=== PATIENT | female | born 1980 | race Caucasian/White ===

== ENCOUNTER 2016-12-12 10:13 | Outpatient (CLI) | payer OTHER ==
[2016-12-12 18:09] LABS: BASOPHILS % (AUTO) 0.7 %; EOSINOPHILS % (AUTO) 0.6 %; HCT - HEMATOCRIT 42.2 % (37.0-47.0); HGB - HEMOGLOBIN 14.2 g/dL (12.0-16.0); LYMPHOCYTES # (AUTO) 1.6 10^3/uL (1.5-3.5); LYMPHOCYTES % (AUTO) 37.5 %; MEAN CORPUSCULAR HEMOGLOBIN 32.6 pg (27.0-31.0); MEAN CORPUSCULAR HGB CONC 33.5 g/dL (32.0-36.0); MEAN CORPUSCULAR VOLUME 97.2 fL (81.0-99.0); MEAN PLATELET VOLUME 9.7 fL (7.9-10.8); MONOCYTES # (AUTO) 0.4 10^3/uL (0.0-1.0); MONOCYTES % (AUTO) 8.9 %; NEUTROPHILS # (AUTO) 2.3 10^3/uL (1.5-6.6); NEUTROPHILS % (AUTO) 52.3 %; NUCLEATED RED BLOOD CELLS AUTO 0.1 /100WBC; RED BLOOD COUNT 4.34 10^6/uL (4.20-5.40); RED CELL DISTRIBUTION WIDTH 13.2 % (12.0-15.0); UNCORRECTED WHITE BLOOD COUNT 4.3 x10^3/uL; WHITE BLOOD COUNT 4.3 x10^3/uL (4.8-10.8)
[2016-12-12 19:00] LABS: ALBUMIN/GLOBULIN RATIO 1.6 (1.0-2.2); BILIRUBIN,TOTAL 1.1 mg/dL (0.2-1.0); CALCIUM 9.4 mg/dL (8.5-10.3); CREATININE 0.8 mg/dL (0.4-1.0); POTASSIUM 4.1 mmol/L (3.5-5.0); TOTAL PROTEIN 7.7 g/dL (6.7-8.2)
== END 2016-12-12 10:14 | disposition home or self-care (01) ==
LOC: LAB.F 10:13
PROVIDERS: ATTEND Physician Assistant Medical
DX: E05.00 Thyrotoxicosis with diffuse goiter without thyrotoxic crisis or storm (principal); Z79.899 Other long term (current) drug therapy
CPT/HCPCS: 36415; 80050; 82306

== ENCOUNTER 2017-06-18 10:30 | Emergency (ER) | payer OTHER ==
[2017-06-18 11:25] LABS: BILIRUBIN,URINE NEGATIVE (NEGATIVE); PH,URINE 7.5 PH (5.0-7.5)
[2017-06-18 11:26] LABS: BASOPHILS % (AUTO) 0.6 %; EOSINOPHILS % (AUTO) 0.8 %; HGB - HEMOGLOBIN 12.8 g/dL (12.0-16.0); LYMPHOCYTES # (AUTO) 1.9 10^3/uL (1.5-3.5); LYMPHOCYTES % (AUTO) 32.3 %; MEAN CORPUSCULAR HEMOGLOBIN 32.3 pg (27.0-31.0); MEAN CORPUSCULAR HGB CONC 34.5 g/dL (32.0-36.0); MEAN CORPUSCULAR VOLUME 93.6 fL (81.0-99.0); MEAN PLATELET VOLUME 8.6 fL (7.9-10.8); MONOCYTES # (AUTO) 0.6 10^3/uL (0.0-1.0); MONOCYTES % (AUTO) 10.1 %; NEUTROPHILS # (AUTO) 3.2 10^3/uL (1.5-6.6); NEUTROPHILS % (AUTO) 56.2 %; RED BLOOD COUNT 3.95 10^6/uL (4.20-5.40); RED CELL DISTRIBUTION WIDTH 12.6 % (12.0-15.0); UNCORRECTED WHITE BLOOD COUNT 5.8 x10^3/uL; WHITE BLOOD COUNT 5.8 x10^3/uL (4.8-10.8)
[2017-06-18 11:28] LABS: HCG UR QUAL NEGATIVE; UA CHARGE (STRIP ONLY) YES; UR CULTURE IF IND NOT INDICATED
[2017-06-18 11:42] LABS: ALBUMIN/GLOBULIN RATIO 1.5 (1.0-2.2); CALCIUM 8.8 mg/dL (8.5-10.3); CREATININE 0.8 mg/dL (0.4-1.0); POTASSIUM 3.6 mmol/L (3.5-5.0); TOTAL PROTEIN 6.8 g/dL (6.7-8.2)
[2017-06-18] MEDS ORDERED: SUCRALFATE 1 GM/10 ML UDC PO STA (12:12)
[2017-06-18] MEDS ORDERED: LIDOCAINE VISCOUS 2% 15 ML UDC MM STA (12:12)
[2017-06-18] MEDS ORDERED: HYOSCYAMINE SL 0.125 MG TABLET SL STA (12:12)
[2017-06-18] MEDS ORDERED: FAMOTIDINE 20 MG TABLET PO STA (12:12)
[2017-06-18] MEDS ORDERED: ONDANSETRON 4 MG/2 ML VIAL IVP STA (12:15)
--- NOTE | 2017-06-18 12:15 | ED Physician Documentation ---
PD HPI ABD PAIN - Stated complaint Stated Complaint: UPPER ABD PX - Chief complaint Chief Complaint: Abd Pain - History obtained from History obtained from: Patient, Family - History of Present Illness Timing - onset: How many days ago (4) Timing - duration: Days (4) Timing - details: Gradual onset Pain level max: 8 Pain level now: 6 Quality: Cramping, Aching, Pain Location: Epigastric Improved by: Other (nothing) Worsened by: Eating, Other (alcohol) Associated symptoms: Nausea, Diarrhea ("neon yellow"). No: Fever, Vomiting, Hematemesis, Constipation, Melena, Hematochezia, Dysuria, Hematuria, Chest pain , Vaginal bleeding Similar symptoms before: No diagnosis Recently seen: Not recently seen - Additional information Additional information: has 2 children at home 9 and 15. States abdominal cramping, nausea and diarrhea. Review of Systems Constitutional: denies: Fever, Chills Ears: denies: Ear pain Nose: denies: Rhinorrhea / runny nose, Congestion Cardiac: denies: Palpitations Respiratory: denies: Cough GI: reports: Nausea : reports: Control (tubal ligation). 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 - Present Medications Home Medications: Ambulatory Orders Medication Instructions Recorded Confirmed Famotidine [Pepcid] 20 mg PO BID #60 tablet 06/18/17 Hydrocodone/Acetaminophen 1 - 2 each PO Q6H PRN #14 tablet 06/18/17 [Hydrocodon-Acetaminophen 5-325] Hyoscyamine Sulfate [Levsin-Sl] 0.125 mg SL Q6H PRN #10 tab.subl 06/18/17 Ondansetron Odt [Zofran] 4 mg TL Q6H PRN #10 tablet 06/18/17 Sucralfate [Carafate] 1 gm PO ACHS #60 tablet 06/18/17 - Allergies Allergies/Adverse Reactions: Allergies Allergy/AdvReac Type Severity Reaction Status Date / Time amoxicillin Allergy Rash Verified 06/18/17 10:49 Penicillins Allergy Rash Verified 06/18/17 10:50 - Social History Does the pt smoke?: No Smoking Status: Never smoker Does the pt drink ETOH?: No - Immunizations Immunizations are current?: Yes - POLST Patient has POLST: No PD ED PE NORMAL - Vitals Vital signs reviewed: Yes - General General: Alert and oriented X 3, No acute distress, Well developed/nourished - HEENT HEENT: Moist mucous membranes - Neck Neck: Supple, no meningeal sign - Cardiac Cardiac: RRR, Strong equal pulses - Respiratory Respiratory: No respiratory distress, Clear bilaterally - Abdomen Abdomen: Normal bowel sounds, Soft, Non distended, Other (TTP epigastric. no peritoneal signs. neg al's sign.) - Derm Derm: Warm and dry - Extremities Extremities: No edema - Neuro Neuro: Alert and oriented X 3 - Psych Psych: Normal mood, Normal affect Results - Vitals Vitals: Vital Signs - 24 hr 06/18/17 06/18/17 10:47 12:45 Temperature 36.8 C Heart Rate 72 73 Respiratory 18 18 Rate Blood Pressure 146/90 H 147/79 H O2 Saturation 100 100 Oxygen O2 Source Room air - Labs Labs: Laboratory Tests 06/18/17 06/18/17 06/18/17 11:00 11:00 11:00 WBC 5.8 RBC 3.95 L Hgb 12.8 Hct 37.0 MCV 93.6 MCH 32.3 H MCHC 34.5 RDW 12.6 Plt Count 174 MPV 8.6 Neut # 3.2 Lymph # 1.9 [place] # 0.6 Eos # 0.0 Baso # 0.0 Absolute Nucleated RBC 0.00 Nucleated RBC % 0.0 Sodium 138 Potassium 3.6 Chloride 104 Carbon Dioxide 25 Anion Gap 9.0 BUN 10 Creatinine 0.8 Estimated GFR (MDRD) 81 L Glucose 98 Calcium 8.8 Total Bilirubin 1.0 AST 17 ALT 10 Alkaline Phosphatase 40 L Total Protein 6.8 Albumin 4.1 Globulin 2.7 Albumin/Globulin Ratio 1.5 Lipase 24 Urine Color YELLOW Urine Clarity CLEAR Urine pH 7.5 Ur Specific [place] 1.020 Urine Protein NEGATIVE Urine Glucose (UA) NEGATIVE Urine Ketones NEGATIVE Urine Occult Blood NEGATIVE Urine Nitrite NEGATIVE Urine Bilirubin NEGATIVE Urine Urobilinogen 0.2 (NORMAL) Ur Leukocyte Esterase NEGATIVE Ur Microscopic Review NOT INDICATED Urine Culture Comments NOT INDICATED Urine HCG, Qual NEGATIVE PD MEDICAL DECISION MAKING - ED course Complexity details: reviewed results, re-evaluated patient, considered differential, d/w patient, d/w family ED course: Patient is a 36-year-old female who presents to the emergency department the nausea, and diarrhea. She also complains of abdominal cramping. This greatly improved in the emergency department. She is well-appearing, nontoxic. Nontender over the gallbladder. No acute laboratory abnormalities. Tolerating p.o. without difficulty. We will trial her on nausea medications for home. We will also treat her for possible gastritis. She has had endoscopies in the past which were normal. No evidence of appendicitis. No peritonitis. No blood in the stool. Patient counseled regarding signs and symptoms for which I believe and urgent re-evaluation would be necessary. Patient with good understanding of and agreement to plan and is comfortable going home at this time This document was made in part using voice recognition software. While efforts are made to proofread this document, sound alike and grammatical errors may occur. Departure - Departure Disposition: Home, Self Care Clinical Impression: Gastroenteritis Abdominal pain Qualifiers: Abdominal location: upper abdomen, unspecified Qualified Code(s): R10.10 - Upper abdominal pain, unspecified Condition: Good Instructions: ED Gastroenteritis Viral Follow-Up: Ashlee Collins PA-C [Primary Care Provider] - Within 1 week Prescriptions: Famotidine [Pepcid] 20 mg PO BID #60 tablet Hydrocodone/Acetaminophen [Hydrocodon-Acetaminophen 5-325] 1 - 2 each PO Q6H PRN #14 tablet PRN Reason: pain Hyoscyamine Sulfate [Levsin-Sl] 0.125 mg SL Q6H PRN #10 tab.subl PRN Reason: Abdominal Pain Ondansetron Odt [Zofran] 4 mg TL Q6H PRN #10 tablet PRN Reason: Nausea / Vomiting Sucralfate [Carafate] 1 gm PO ACHS #60 tablet Comments: Drink plenty of fluids and rest. Return if you worsen. This should improve over the next few days. Follow-up with your doctor for further care. Do not drink alcohol or drive while on narcotic pain medicine. Note that many narcotic pain relievers also contain tylenol/acetaminophen. Please ensure that your total dose of acetaminophen from all sources does not exceed 3 grams (3000mg) per day. You may constipated on this medication, take a stool softener such as "Colace" twice a day while you are on it. Also recommend a [id number] laxative such as senna or MiraLAX any day that you do not have a bowel movement. If you received narcotic pain medication in the emergency department, do not drive or operate machinery for the next 24 hours. Discharge Date/Time: 06/18/17 13:13
[2017-06-18] MEDS ORDERED: MAG HYDROX/AL HYDROX/SIMETH 30 ML UDC PO STA (12:28)
[2017-06-18] MEDS ORDERED: FAMOTIDINE 20 MG TABLET ONE (12:31)
[2017-06-18] MEDS ORDERED: HYOSCYAMINE SL 0.125 MG TABLET SL ONE (12:31)
[2017-06-18] MEDS ORDERED: ONDANSETRON 4 MG/2 ML VIAL ONE (12:31)
[2017-06-18] MEDS ORDERED: SUCRALFATE 1 GM/10 ML UDC ONE (12:31)
[2017-06-18] MEDS ORDERED: LIDOCAINE VISCOUS 2% 15 ML UDC MM ONE (12:32)
[2017-06-18 12:45] VITALS: BP 147/79
[2017-06-18] MEDS ORDERED: HYDROcod/ACETAM 5/325 MG TABLET PO STA (12:58)
[2017-06-18] MEDS ORDERED: HYDROcod/ACETAM 5/325 MG TABLET ONE (13:15)
== END 2017-06-18 13:13 | disposition home or self-care (01) ==
LOC: ED 10:30
DX: K52.9 Noninfective gastroenteritis and colitis, unspecified (principal); E05.90 Thyrotoxicosis, unspecified without thyrotoxic crisis or storm
CPT/HCPCS: 36415; 80053; 81003; 81025; 83690; 85025; 96374; 99283; A9270; 81001; 87086

== ENCOUNTER 2017-10-29 14:54 | Outpatient (CLI) | payer OTHER ==
[2017-10-29 18:13] LABS: THYROID STIMULATING HORMONE 0.98 uIU/mL (0.34-5.60)
[2017-10-29 18:15] LABS: FREE T4 (FREE THYROXINE) 1.03 ng/dL (0.58-1.64)
== END 2017-10-29 14:55 | disposition home or self-care (01) ==
LOC: LAB.F 14:54
PROVIDERS: ATTEND Nurse Practitioner Family
DX: E05.00 Thyrotoxicosis with diffuse goiter without thyrotoxic crisis or storm (principal)
CPT/HCPCS: 36415; 84439; 84443

== ENCOUNTER 2018-07-23 10:07 | Outpatient (CLI) | payer OTHER ==
[2018-07-25 14:21] LABS: THYROID PEROXIDASE ANTIBODIES <1 IU/mL (<9)
== END 2018-07-23 10:08 | disposition home or self-care (01) ==
LOC: LAB.F 10:07
PROVIDERS: ATTEND Physician Assistant Medical
DX: R53.83 Other fatigue (principal); Z86.39 Personal history of other endocrine, nutritional and metabolic disease
CPT/HCPCS: 36415; 84443; 86376; 86800

== ENCOUNTER 2018-07-29 18:51 | Outpatient (CLI) | payer OTHER ==
--- NOTE | 2018-07-31 15:43 | Ultrasound Report ---
Reason: FATIGUE, GRAVE'S DISEASE Procedure Date: 07/29/2018 Accession Number: [id number] / [id number] Procedure: US - Head or Neck Soft Tissue CPT Code: FULL RESULT: EXAM: THYROID ULTRASOUND EXAM DATE: 07/29/2018 07:16 PM. CLINICAL HISTORY: Fatigue, Graves' disease. COMPARISON: None. TECHNIQUE: Real time sonographic imaging of the thyroid was performed by the timber skidder. Multiple utility sales representative static images were saved for review. FINDINGS: THYROID GLAND: The thyroid gland is globally hypervascular by color and power Doppler. Right Lobe: 4.1 x 1.6 x 1.0 cm, volume 3.4 cc. Normal background echotexture. Right Lobe Nodules: 0.8 x 0.7 x 0.7 cm relatively hypoechoic solid-appearing nodule. Left Lobe: 4.2 x 1.6 x 1.4 cm, volume 4.9 cc. Normal background echotexture. Left Lobe Nodules: None. Isthmus: 0.3 cm AP. Isthmic Nodules: None. LYMPH NODES: No adenopathy demonstrated in the central or lateral compartment. OTHER: None. IMPRESSION: Globally hypervascular thyroid gland with no suspicious nodules that meet criteria for tissue sampling. Management recommendations are based on 2015 [place] [employer] Management Guidelines for Adult Patients with Thyroid Nodules and Differentiated Thyroid Cancer. RADIA
== END 2018-07-29 18:52 | disposition home or self-care (01) ==
LOC: DI 18:51
PROVIDERS: ATTEND Physician Assistant Medical
DX: R53.83 Other fatigue (principal); E05.00 Thyrotoxicosis with diffuse goiter without thyrotoxic crisis or storm
CPT/HCPCS: 76536

== ENCOUNTER 2020-08-19 12:18 | Outpatient (CLI) | payer OTHER ==
[2020-08-19 14:54] LABS: BASOPHILS % (AUTO) 0.6 %; EOSINOPHILS # (AUTO) 0.1 10^3/uL (0.0-0.7); HGB - HEMOGLOBIN 13.7 g/dL (12.0-16.0); LYMPHOCYTES # (AUTO) 1.6 10^3/uL (1.5-3.5); LYMPHOCYTES % (AUTO) 33.1 %; MEAN CORPUSCULAR HEMOGLOBIN 31.9 pg (27.0-31.0); MEAN CORPUSCULAR HGB CONC 33.2 g/dL (32.0-36.0); MONOCYTES # (AUTO) 0.4 10^3/uL (0.0-1.0); MONOCYTES % (AUTO) 8.1 %; NEUTROPHILS # (AUTO) 2.8 10^3/uL (1.5-6.6); PLT - PLATELET COUNT 203 10^3/uL (130-450); RED CELL DISTRIBUTION WIDTH 12.3 % (12.0-15.0); WHITE BLOOD COUNT 4.8 x10^3/uL (4.8-10.8)
[2020-08-19 15:21] LABS: ALBUMIN 4.5 g/dL (3.2-5.5); ALBUMIN/GLOBULIN RATIO 1.7 (1.0-2.2); ALKALINE PHOSPHATASE 39 IU/L (42-121); ALT ALANINE AMINOTRANSFERASE 13 IU/L (10-60); AST ASPARTATE AMINOTRANSFERASE 17 IU/L (10-42); BILIRUBIN,TOTAL 0.7 mg/dL (0.2-1.0); BUN - BLOOD UREA NITROGEN 7 mg/dL (6-20); CALCIUM 9.3 mg/dL (8.5-10.3); CARBON DIOXIDE - CO2 26 mmol/L (21-32); CHLORIDE 103 mmol/L (101-111); CHOL/HDL RATIO 2.4 (<4.4); CHOLESTEROL 158 mg/dL; CREATININE 0.7 mg/dL (0.4-1.0); GLUCOSE 70 mg/dL (70-100); HDL CHOLESTEROL 67 mg/dL; LDL CHOLESTEROL,CALCULATED 77 mg/dL; LDL/HDL RATIO 1.1 (<4.4); TOTAL PROTEIN 7.1 g/dL (6.7-8.2); VLDL CHOLESTEROL 14 mg/dL
[2020-08-19 15:24] LABS: T4 (THYROXINE) 8.6 ug/dL (6.09-12.23)
[2020-08-19 15:26] LABS: CRP - C-REACTIVE PROTEIN < 1.0 mg/dL (0-1.0)
[2020-08-19 15:34] LABS: TOTAL T3 0.79 ng/mL (0.87-1.78)
== END 2020-08-19 12:19 | disposition home or self-care (01) ==
LOC: LAB.S 12:18
PROVIDERS: ATTEND Registered Nurse
DX: L65.9 Nonscarring hair loss, unspecified (principal); R53.83 Other fatigue; R00.2 Palpitations; Z86.39 Personal history of other endocrine, nutritional and metabolic disease
CPT/HCPCS: 36415; 80053; 80061; 83721; 84436; 84443; 84480; 85025; 86140

== ENCOUNTER 2020-09-23 15:40 | Outpatient (CLI) | payer OTHER ==
[2020-09-23 20:30] LABS: % IRON SATURATION 27 % (20-50); IRON 80 ug/dL (28-170); TOTAL IRON BINDING CAPACITY 297 ug/dL (250-450); TRANSFERRIN 212 mg/dL (192-382)
[2020-09-23 20:34] LABS: THYROID STIMULATING HORMONE < 0.08 uIU/mL (0.34-5.60)
[2020-09-23 20:36] LABS: FREE T3 5.04 pg/mL (2.5-3.9); FREE T4 (FREE THYROXINE) 0.64 ng/dL (0.58-1.64)
[2020-09-27 13:01] LABS: ANA SCREEN NEGATIVE (NEGATIVE)
[2020-10-02 17:31] LABS: CREATININE, RANDOM URINE 181 mg/dL (20-275)
== END 2020-09-23 15:41 | disposition home or self-care (01) ==
LOC: LAB.S 15:40
PROVIDERS: ATTEND Internal Medicine Endocrinology, Diabetes & Metabolism
DX: L65.9 Nonscarring hair loss, unspecified (principal); M25.50 Pain in unspecified joint; E05.00 Thyrotoxicosis with diffuse goiter without thyrotoxic crisis or storm; R20.0 Anesthesia of skin
CPT/HCPCS: 36415; 81599; 82175; 82570; 82607; 83540; 83655; 83825; 84439; 84443; 84445; 84466; 84481; 86038; 86376; 86800

== ENCOUNTER 2021-09-13 10:42 | Outpatient (CLI) | payer OTHER ==
[2021-09-13 14:30] LABS: BASOPHILS % (AUTO) 0.7 %; EOSINOPHILS # (AUTO) 0.1 10^3/uL (0.0-0.7); EOSINOPHILS % (AUTO) 1.3 %; HCT - HEMATOCRIT 38.4 % (37.0-47.0); HGB - HEMOGLOBIN 12.9 g/dL (12.0-16.0); LYMPHOCYTES # (AUTO) 1.5 10^3/uL (1.5-3.5); LYMPHOCYTES % (AUTO) 33.6 %; MEAN CORPUSCULAR HEMOGLOBIN 32.2 pg (27.0-31.0); MEAN CORPUSCULAR HGB CONC 33.6 g/dL (32.0-36.0); MEAN CORPUSCULAR VOLUME 95.8 fL (81.0-99.0); MEAN PLATELET VOLUME 11.2 fL (7.9-10.8); MONOCYTES # (AUTO) 0.5 10^3/uL (0.0-1.0); MONOCYTES % (AUTO) 11.4 %; NEUTROPHILS # (AUTO) 2.4 10^3/uL (1.5-6.6); NEUTROPHILS % (AUTO) 52.8 %; PLT - PLATELET COUNT 200 10^3/uL (130-450); RED BLOOD COUNT 4.01 10^6/uL (4.20-5.40); RED CELL DISTRIBUTION WIDTH 12.4 % (12.0-15.0); WHITE BLOOD COUNT 4.5 x10^3/uL (4.8-10.8)
[2021-09-13 14:49] LABS: T4 (THYROXINE) 7.56 ug/dL (6.09-12.23)
[2021-09-13 14:52] LABS: THYROID STIMULATING HORMONE 1.22 uIU/mL (0.34-5.60)
[2021-09-13 15:08] LABS: ALBUMIN 4.3 g/dL (3.2-5.5); ALBUMIN/GLOBULIN RATIO 1.6 (1.0-2.2); ALKALINE PHOSPHATASE 38 IU/L (42-121); ALT ALANINE AMINOTRANSFERASE 13 IU/L (10-60); AST ASPARTATE AMINOTRANSFERASE 17 IU/L (10-42); BILIRUBIN,TOTAL 0.8 mg/dL (0.2-1.0); BUN - BLOOD UREA NITROGEN 9 mg/dL (6-20); CARBON DIOXIDE - CO2 27 mmol/L (21-32); CHLORIDE 104 mmol/L (101-111); CHOL/HDL RATIO 2.2 (<4.4); CHOLESTEROL 159 mg/dL; CREATININE 0.8 mg/dL (0.4-1.0); GFR - MDRD 79 (>89); GLUCOSE 90 mg/dL (70-100); HDL CHOLESTEROL 71 mg/dL; LDL CHOLESTEROL,CALCULATED 79 mg/dL; LDL/HDL RATIO 1.1 (<4.4); POTASSIUM 3.8 mmol/L (3.5-5.0); SODIUM 138 mmol/L (135-145); TRIGLYCERIDES 47 mg/dL; VLDL CHOLESTEROL 9 mg/dL
[2021-09-13 15:10] LABS: CRP - C-REACTIVE PROTEIN < 1.0 mg/dL (0-1.0)
[2021-09-14 13:51] LABS: HIV AG/AB 4TH GEN NON-REACTIVE (NON-REACTIVE)
[2021-09-15 11:21] LABS: ANA SCREEN NEGATIVE (NEGATIVE)
== END 2021-09-13 10:43 | disposition home or self-care (01) ==
LOC: LAB.S 10:42
PROVIDERS: ATTEND Registered Nurse
DX: E03.9 Hypothyroidism, unspecified (principal); L65.9 Nonscarring hair loss, unspecified; R53.83 Other fatigue; Z86.39 Personal history of other endocrine, nutritional and metabolic disease; E78.5 Hyperlipidemia, unspecified; G31.84 Mild cognitive impairment of uncertain or unknown etiology; M62.81 Muscle weakness (generalized); M54.2 Cervicalgia; R20.9 Unspecified disturbances of skin sensation
CPT/HCPCS: 36415; 80053; 80061; 81599; 83721; 84436; 84443; 84480; 85025; 86038; 86140; 86225; 86592; 87389

== ENCOUNTER 2021-09-15 06:46 | Outpatient (CLI) | payer OTHER ==
--- NOTE | 2021-09-15 09:38 | Ultrasound Report ---
PROCEDURE: Head or Neck Soft Tissue INDICATIONS: HYPOTHYROID TECHNIQUE: Real time scanning was performed of the neck region of interest, with image documentation . COMPARISON: None. FINDINGS: The right thyroid gland measures 5.4 x 1.2 x 1.5 cm. The left thyroid gland measures 5.8 x 1.0 x 1.7 cm. In the right inferior thyroid lobe there is a 0.9 x 0.8 x 0.8 cm wider than tall, solid, isoechoic, s moothly nodule with no echogenic foci. This is unchanged in size and appearance compared to the prior ultrasound on 07/29/2018. IMPRESSION: Stable TI-RADS 3 subcentimeter nodule, stable since 07/29/2018. Reviewed by: Garrett Flaherty on 09/15/2021 9:36 AM [facility] Approved by: Garrett Flaherty on 09/15/2021 9:36 AM [facility] Station ID: [id number]
== END 2021-09-15 06:47 | disposition home or self-care (01) ==
LOC: DI 06:46
PROVIDERS: ATTEND Registered Nurse
DX: E03.9 Hypothyroidism, unspecified (principal); E04.1 Nontoxic single thyroid nodule

== ENCOUNTER 2021-09-21 07:18 | Outpatient (CLI) | payer OTHER ==
--- NOTE | 2021-09-21 07:39 | CT Report ---
PROCEDURE: HEAD WO INDICATIONS: COGNITIVE IMPAIRMENT, MUSCLE WEAKNESS TECHNIQUE: Noncontrast 4.5 mm thick angled axial sections acquired from the foramen magnum to the vertex. For r adiation dose reduction, the following was used: automated exposure control, adjustment of mA and/or kV according to patient size. COMPARISON: None. FINDINGS: Image quality: Excellent. CSF spaces: Basal cisterns are patent. No extra-axial fluid collections. Ventricles are normal in size and shape. Brain: No midline shift. No intracranial masses or hemorrhage. Epps-white matter interface is norm al. Skull and face: Calvarium and visualized facial bones are intact, without suspicious lesions. Sinuses: Visualized sinuses and mastoids are clear. IMPRESSION: CT head without acute intracranial abnormalities. No evidence for mass or mass effect. Reviewed by: Andrew Villalta MD on 09/21/2021 7:38 AM PDT Approved by: Andrew Villalta MD on 09/21/2021 7:38 AM PDT Station ID: [id number]
== END 2021-09-21 07:19 | disposition home or self-care (01) ==
LOC: DI 07:18
PROVIDERS: ATTEND Registered Nurse
DX: G31.84 Mild cognitive impairment of uncertain or unknown etiology (principal); M62.81 Muscle weakness (generalized); M54.2 Cervicalgia; R20.0 Anesthesia of skin; R53.83 Other fatigue

== ENCOUNTER 2022-08-23 09:51 | Outpatient (CLI) | payer OTHER ==
--- NOTE | 2022-08-24 10:59 | Mammography Report ---
BILATERAL DIGITAL SCREENING MAMMOGRAM 3D/2D WITH EXAGGERATED CC: 08/23/2022 CLINICAL: Routine screening. Comparison is made to exam dated: 12/12/2010 mammogram - [facility]. Both breasts are extremely dense, which lowers the sensitivity of mammography (category d />75% gland ular tissue). No significant masses, calcifications, or other findings are seen in either breast. There has been no significant interval change. IMPRESSION: NEGATIVE There is no mammographic evidence of malignancy. A 1 year screening mammogram is recommended. Based on the Tyrer Cuzick model (a risk assessment model) the patients lifetime risk is 14.6% and he r 10 year risk is 2.0%. According to the ACR, ACS, and NCCN guidelines, an annual breast MRI exam sendy ng with mammogram is recommended if the patients lifetime risk is 20% or greater. This exam was interpreted at Station ID: [id number]. NOTE: For mammograms, a report in lay terms will be sent to the patient. Approximately 15% of breast malignancies will not be visualized mammographically. In the management of a palpable breast mass, a negative mammogram must not discourage biopsy of a clinically suspicious lesion. Electronically Signed By: Shraddha fletcher/quinn:08/23/2022 15:54:17 ACR BI-RADS Category 1: Negative 3341F PARENCHYMAL PATTERN: (VD) - The breast(s) demonstrate(s) extremely dense parenchyma, limiting the sen sitivity of mammography. BI-RADS CATEGORY: (1) - 1 RECOMMENDATION: (ANNUAL) - Recommend routine annual screening mammography. [id number] 1 year screening LATERALITY: (B)
== END 2022-08-23 09:52 | disposition home or self-care (01) ==
LOC: DI.S 09:51
PROVIDERS: ATTEND Internal Medicine
DX: Z12.31 Encounter for screening mammogram for malignant neoplasm of breast (principal)

== ENCOUNTER 2023-02-03 11:26 | Outpatient (CLI) | payer OTHER | END 2023-02-03 23:59 | disposition short-term general hospital (02) | LOC: EMS 11:26 | DX: R00.2 Palpitations (principal); R53.1 Weakness; R42 Dizziness and giddiness; M25.511 Pain in right shoulder | CPT/HCPCS: A0425; A0429 ==

== ENCOUNTER 2023-02-15 09:22 | Outpatient (CLI) | payer OTHER ==
[2023-02-15 14:51] LABS: CALCIUM 9.8 mg/dL (8.5-10.3); CREATININE 0.8 mg/dL (0.6-1.3); POTASSIUM 4.1 mmol/L (3.5-4.5)
== END 2023-02-15 09:23 | disposition home or self-care (01) ==
LOC: LAB.S 09:22
PROVIDERS: ATTEND Internal Medicine Cardiovascular Disease
DX: I49.3 Ventricular premature depolarization (principal); I42.8 Other cardiomyopathies
CPT/HCPCS: 36415; 80048

== ENCOUNTER 2023-03-16 13:14 | Outpatient (CLI) | payer OTHER ==
[2023-03-16] MEDS ORDERED: ALBUTEROL 1 PUFF INH STA (15:28)
== END 2023-03-16 13:15 | disposition home or self-care (01) ==
LOC: RT 13:14
PROVIDERS: ATTEND Registered Nurse
DX: R07.89 Other chest pain (principal); R59.0 Localized enlarged lymph nodes
CPT/HCPCS: 94060; 94729

== ENCOUNTER 2023-08-20 09:43 | Outpatient (CLI) | payer OTHER ==
--- NOTE | 2023-08-20 11:45 | Mammography Report ---
BILATERAL DIGITAL SCREENING MAMMOGRAM 3D/2D WITH EXAGGERATED CC: 08/20/2023 CLINICAL: Routine screening. Comparison is made to exam dated: 08/23/2022 mammogram - [facility]. Both breasts are extremely dense, which lowers the sensitivity of mammography (category d />75% gland ular tissue). No significant masses, calcifications, or other findings are seen in either breast. There has been no significant interval change. IMPRESSION: NEGATIVE There is no mammographic evidence of malignancy. A 1 year screening mammogram is recommended. Based on the Tyrer Cuzick model (a risk assessment model) the patient's lifetime risk is 14.6% and he r 10 year risk is 2.2%. According to the ACR, ACS, and NCCN guidelines, an annual breast MRI exam sendy ng with mammogram is recommended if the patient's lifetime risk is 20% or greater. This exam was interpreted at Station ID: [id number]. NOTE: For mammograms, a report in lay terms will be sent to the patient. Approximately 15% of breast malignancies will not be visualized mammographically. In the management of a palpable breast mass, a negative mammogram must not discourage biopsy of a clinically suspicious lesion. Electronically Signed By: Santosh mason/penrad:08/20/2023 10:27:11 letter sent: No_Letter ACR BI-RADS Category 1: Negative 3341F PARENCHYMAL PATTERN: (VD) - The breast(s) demonstrate(s) extremely dense parenchyma, limiting the sen sitivity of mammography. BI-RADS CATEGORY: (1) - 1 Mammogram [id number] 1 year screening LATERALITY: (B)
== END 2023-08-20 09:44 | disposition home or self-care (01) ==
LOC: DI.S 09:43
PROVIDERS: ATTEND Internal Medicine
DX: Z12.39 Encounter for other screening for malignant neoplasm of breast (principal); Z12.31 Encounter for screening mammogram for malignant neoplasm of breast; R92.343 Mammographic extreme density, bilateral breasts

== ENCOUNTER 2023-11-13 08:26 | Outpatient (CLI) | payer OTHER ==
[2023-11-13 15:41] LABS: CALCIUM 9.6 mg/dL (8.5-10.3); CREATININE 1.1 mg/dL (0.6-1.3); POTASSIUM 4.2 mmol/L (3.5-4.5)
== END 2023-11-13 08:27 | disposition home or self-care (01) ==
LOC: LAB.S 08:26
DX: Z09 Encounter for follow-up examination after completed treatment for conditions other than malignant neoplasm (principal); Z94.1 Heart transplant status
CPT/HCPCS: 36415; 80048; 80197

== ENCOUNTER 2024-02-11 10:33 | Outpatient (CLI) | payer OTHER ==
[2024-02-11 15:09] LABS: BASOPHILS # (AUTO) 0.1 10^3/uL (0.0-0.1); EOSINOPHILS % (AUTO) 0.8 %; HCT - HEMATOCRIT 36.5 % (37.0-47.0); HGB - HEMOGLOBIN 11.9 g/dL (12.0-16.0); LYMPHOCYTES % (AUTO) 19.4 %; MEAN CORPUSCULAR HEMOGLOBIN 31.6 pg (27.0-31.0); MEAN CORPUSCULAR HGB CONC 32.6 g/dL (32.0-36.0); MEAN CORPUSCULAR VOLUME 97.1 fL (81.0-99.0); MEAN PLATELET VOLUME 10.9 fL (7.9-10.8); MONOCYTES # (AUTO) 0.5 10^3/uL (0.0-1.0); MONOCYTES % (AUTO) 9.8 %; NEUTROPHILS # (AUTO) 3.4 10^3/uL (1.5-6.6); NEUTROPHILS % (AUTO) 65.5 %; PLT - PLATELET COUNT 195 10^3/uL (130-450); RED BLOOD COUNT 3.76 10^6/uL (4.20-5.40); RED CELL DISTRIBUTION WIDTH 13.3 % (12.0-15.0); WHITE BLOOD COUNT 5.2 x10^3/uL (4.8-10.8)
== END 2024-02-11 10:34 | disposition home or self-care (01) ==
LOC: LAB.S 10:33
PROVIDERS: ATTEND Internal Medicine Cardiovascular Disease
DX: Z09 Encounter for follow-up examination after completed treatment for conditions other than malignant neoplasm (principal); Z94.1 Heart transplant status
CPT/HCPCS: 36415; 85025

== ENCOUNTER 2024-03-26 08:33 | Outpatient (CLI) | payer OTHER ==
[2024-03-26 16:08] LABS: CALCIUM 9.3 mg/dL (8.5-10.3); CREATININE 1.1 mg/dL (0.6-1.3)
== END 2024-03-26 08:34 | disposition home or self-care (01) ==
LOC: LAB.S 08:33
PROVIDERS: ATTEND Internal Medicine Cardiovascular Disease
DX: Z09 Encounter for follow-up examination after completed treatment for conditions other than malignant neoplasm (principal); Z94.1 Heart transplant status
CPT/HCPCS: 36415; 80048; 80197